=== PATIENT | female | born 1965 | race Caucasian/White ===

== ENCOUNTER 2022-10-05 01:42 | Day surgery (SDC) | payer OTHER, SELFPAY ==
[2022-09-26 10:03] VITALS: BMI 31.6
--- NOTE | 2022-09-26 10:04 | SUR.PREOP ---
Report to the Outpatient Waiting Room, entrance under the green pavilion located off [facility], at time _0600 on date _10/05/22 . Planned Procedure Time: 07 . Time changes happen often and if your time is changed the preop area will call you the afternoon before. - You and your visitor will be asked to self-screen and do not enter if you have any COVID symptoms. - Only one visitor is requested with a max of two and NO children visitors are allowed at this time. - The patient visitor may be requested to leave or wait in car when not with patient due to distancing restrictions. - A mask is optional within the hospital. Patients may have clear liquids (water, carbonated beverages, clear teas, apple juice) until 3 hours prior to surgery with a maximum of 20 ounces. - No food from midnight until time of surgery - Infants may have breast milk until 4 hours before surgery, infant formula 6 hours prior to surgery. - Children will be allowed to drink immediately following surgery. If applicable, please bring a bottle or sippy cup to assist with drinking. Juice, water, soda, and popsicles are readily available. For infants on formula, please bring formula the day of surgery. Pacifiers are allowed. Take the following medications with a SIP of water the morning of surgery: ____n/a Medications to discontinue per physician __vitamin supplements Date to take last dose___10/02/22 Please no make-up, nail iranian, hairspray, perfume, deodorant, or body powder the day of surgery. No jewelry (including any body piercings) or valuables the day of surgery, leave them at home. Please take a shower or bath the night before, or the morning of, surgery with an antibacterial soap. Wear comfortable, loose fitting clothing. Children are encouraged to wear pajamas. - Jewelry must be removed prior to entering the operating room. Rings and piercings that are not removed may be cut off. - The hospital will not accept responsibility for valuables. - Please leave all valuables, including medications, at home the day of surgery. If you are going home after surgery, a licensed meals on wheels driver must drive you home. - NO public transportation without another adult if you receive anesthesia. - We recommend that an adult stay with you for 24 hours following discharge. - We also recommend that you do not drive, make important decision, drink alcoholic beverages, or take any drugs that were not prescribed by your health care provider for at least 24 hours after your discharge time. For Pediatric surgeries, we recommend two adults accompany the child home. Follow any additional instructions given to you from your surgeon. If you or anyone in your household have experienced Covid symptoms in the past week, please notify your surgeon or the nurse liaison at the phone number below for possible testing. Telephone instructions given to anum sanabria and asked if any additional questions and then verbalized understanding. Patient advised to call surgeon office or pre surgery nurse liaison [phone] if any additional questions.
--- NOTE | 2022-10-05 06:44 | P.PNAN_ITS ---
Anes - Initial Pre Proc Eval Procedure: Operation Date: 10/05/22 07:30 Proposed Procedures p Hysteroscopy Dilation and Curettage with Aveta, Possible Polypectomy - Shad Turcios MD Date/Time: 10/05/22 06:44 Surgeon: Shad Turcios MD Pre Op Diagnosis: Endometrial polyp Patient Data Age: 57 Gender: F Height: 1.55 m Weight: 75.9 kg Allergies Allergy/AdvReac Type Severity Reaction Status Date / Time No Known Allergies Allergy Mild Verified 09/26/22 09:44 Home Medications Medication Instructions Recorded Confirmed Type calcium carbonate 600 mg-vitamin 1 tablet PO DAILY 04/20/20 09/26/22 History D3 20 mcg (800 unit) chewable tablet (Caltrate 600 plus D) cholecalciferol (vitamin D3) 25 25 mcg PO DAILY 04/20/20 09/26/22 History mcg (1,000 unit) capsule potassium citrate 10 mEq (1,080 10 meq PO DAILY 04/20/20 09/26/22 History mg) tablet,extended release simvastatin 5 mg tablet 5 mg PO DAILY 04/20/20 09/26/22 History valsartan 160 1 tablet PO DAILY 04/20/20 09/26/22 History mg-hydrochlorothiazide 12.5 mg tablet aspirin 81 mg chewable tablet 81 mg PO DAILY 05/09/22 09/26/22 History Patient hx anesthesia problems: none Family hx anesthesia problems: none Results Review: All pre-operative results and documents have been reviewed as part of the pre- operative evaluation. [facility] Past Medical History Medical History High cholesterol Hypertension Vaginal delivery Surgical History Surgical History History of knee surgery Left knee 03/08/2021 S/P hip replacement Family History Family History Father Hypertension Grandparent Cerebrovascular accident Other Family history of malignant neoplasm of male breast Social History Social History Smoking status: Never smoker Second hand tobacco smoke exposure: No Alcohol intake: current Living arrangements: with family Spiritual care concerns: No Anes - Eval Final PreProcedure Day of Procedure 10/05/22 06:44 Patient weight: overweight Heart: regular rate and rhythm Lungs: clear to auscultation Airway: Mallampati scale class II Neurological: alert and oriented Last oral intake: >/= 8 hours ASA classification: II Emergent: no Anesthetic plan: proceed Anesthesia type and monitoring: general GIVS and standard monitoring Results Review: All pre-operative results and documents have been reviewed as part of the pre- operative evaluation. Informed Consent: The patient's anesthetic plan and its attendant risks and benefits were discussed with the patient/family/POA. Questions were solicited and answers provided to the satisfaction of the patient/family/POA.
[2022-10-05] MEDS: ACETAMINOPHEN 500 MG TABLET 1000 MG PO (07:00)
[2022-10-05] MEDS: LACTATED RINGERS 1,000 ML 30 ML IV CONT (07:00)
--- NOTE | 2022-10-05 07:14 | PM.IMHP ---
H&P: [facility] History of Present Illness Date/Time: 10/05/22 07:14 Chief Complaint: Endometrial polyp Narrative: She is here for scheduled dilation and currettage and hysteroscopy and removal of endometrial polyp if present. She had an endometrial biopsy performed due to irregular periods and late onset menopausae and biopsy showed endometrial polyp. She was recommend for D and C hysteroscopy and removal of polyp if present. Review of Systems Review of Systems: All systems reviewed & are unremarkable except as noted in HPI and below Constitutional: Constitutional: Reports no additional constitutional complaints Eyes: Eyes: Reports no additional eye complaints Cardiovascular: Cardiovascular: Reports no additional cardiovascular complaints Respiratory: Respiratory: Reports no additional respiratory complaints Gastrointestinal: Gastrointestinal: Reports no additional gastrointestinal complaints Genitourinary: Genitourinary: Reports no additional female genitourinary complaints and Reports as per HPI Integumentary/Breasts: Skin/Breast: Reports system reviewed and no additional complaints, except as docu Neurologic: Reports system reviewed and no additional complaints, except as documented Psychiatric: Psychiatric: Reports no additional psychiatric complaints Hematologic/Lymphatic: Hematologic/Lymphatic: Reports no additional hematologic/lymphatic complaints [facility] Past Medical History Medical History High cholesterol Hypertension Vaginal delivery Surgical History Surgical History History of knee surgery Left knee 03/08/2021 S/P hip replacement Family History Family History Father Hypertension Grandparent Cerebrovascular accident Other Family history of malignant neoplasm of male breast Social History Social History Smoking status: Never smoker Second hand tobacco smoke exposure: No Alcohol intake: current Living arrangements: with family Spiritual care concerns: No Meds Home Medications and Allergies Home Medications Medication Instructions Recorded Confirmed Type calcium carbonate 600 mg-vitamin 1 tablet PO DAILY 04/20/20 09/26/22 History D3 20 mcg (800 unit) chewable tablet (Caltrate 600 plus D) cholecalciferol (vitamin D3) 25 25 mcg PO DAILY 04/20/20 09/26/22 History mcg (1,000 unit) capsule potassium citrate 10 mEq (1,080 10 meq PO DAILY 04/20/20 09/26/22 History mg) tablet,extended release simvastatin 5 mg tablet 5 mg PO DAILY 04/20/20 09/26/22 History valsartan 160 1 tablet PO DAILY 04/20/20 09/26/22 History mg-hydrochlorothiazide 12.5 mg tablet aspirin 81 mg chewable tablet 81 mg PO DAILY 05/09/22 09/26/22 History Allergies Allergy/AdvReac Type Severity Reaction Status Date / Time No Known Allergies Allergy Mild Verified 09/26/22 09:44 Exam Const: General: comfortable and no acute distress Orientation/consciousness: oriented to person, oriented to place and oriented to time Eyes: General: appearance normal, both eyes and all related structures Neck: Neck: normal visual inspection Resp: Effort & Inspection: normal respiratory effort Auscultation: clear to auscultation bilaterally Cardio: Rate: regular rate Rhythm: regular rhythm GI: Inspection: normal to inspection GI Palp: No abdominal tenderness and Yes No hepatosplenomegaly present : External Female Exam: normal external appearance Speculum Exam - Vagina: normal appearance of the vagina Speculum Exam - Cervix: normal appearance of the cervix Bimanual exam- vagina & uterus: normal bimanual exam, uterine mobility normal, uterine shape normal and non-tender Bimanual Exam- Adnexa, other: no masses and No adnexal tenderness Skin: General skin exam: normal color
--- NOTE | 2022-10-05 07:17 | WPDHPUPDATE1 ---
History and Physical Update Update Date/Time: 10/05/22 07:17 History and Physical has been reviewed, including an updated exam of the patient. There are NO changes in the patient's condition. Risks, benefits, and alternatives have been discussed and questions answered. Patient agrees to proceed with procedure.
[2022-10-05 07:19] VITALS: BP 141/71; PULSE 63; RESP 14; TEMP 36.6; O2SAT 100
[2022-10-05] MEDS: ceFAZolin 2 GM/D5W 50 ML 2 GM/50 ML BAG IVPB (07:25)
[2022-10-05] MEDS: KETOROLAC 30 MG/ML VIAL (*BKC) IV PUSH (07:40)
[2022-10-05] MEDS: LIDOCAINE 1% BUFFERED WITH 8.4% SODIUM BICARB 1 ML SYRINGE 10 ML INFILTRATE (07:43)
[2022-10-05 08:05] VITALS: BP 116/74; PULSE 80; RESP 12; O2SAT 98
--- NOTE | 2022-10-05 08:13 | PM.OP ---
Procedure Note - Brief Procedure Note - Brief Date of procedure: 10/05/22 Pre-op diagnosis: Endometrial polyp same Post-op diagnosis: Same Procedure performed: Hysteroscopy dilation and currettage. Excision of endometrial polyp with Aveta instrument. Anesthesia: MAC and local Surgeon: Shad Turcios MD Estimated blood loss (mL): 5 Drains: No Packing: No Pathology: Yes (endometrial polyp currettings and endometrial curret) Complications: No immediate complications Condition: Stable Disposition: Same day Findings: uterus sound to 7 cm, int os stenotic, dilated with hydrodissection, endometrial polyp at mid endometrial cavity, removed completely. The rest of the cavity atrophic.
[2022-10-05 08:35] VITALS: BP 108/61; PULSE 54; RESP 12
--- NOTE | 2022-10-05 09:15 | W.PM.PROC2 ---
Procedure Note - Detailed Date of Procedure 10/05/22 Pre-op Diagnosis Endometrial polyp Post-op Diagnosis Same Procedure Performed Hysteroscopy with dilation and currettage and excision of endometrial polyp with Aveta instrument. Surgeon Shad Turcios MD Anesthesia MAC and Local Indications Endometrial polyp on office endometrial biopsy. Findings endometrial polyp approximately 1.5 cm anterior mid uterine cavity Description of Procedure After informed consent was obtained patient was taken to operating room.She had IV sedation initiated. In exam under anesthesia was performed exam was normal. Attention was turned to the vagina speculum was inserted single-tooth tenaculum placed on the anterior cervix. 10 cc of 1% lidocaine was injected at the cervical vaginal interface that 2 5 and 8 and 10:00 position on the cervix. The cervix os was stenotic at the upper os. The a Madeline a hysteroscope was used to perform hydro dilation of the cervix which did dilate well and the cavity was entered. There was the finding of the endometrial polyp. The cutting instrument was then inserted into the hysteroscope and the polyp was removed total. No other abnormalities were noted in the uterine cavity the rest of the cavity appeared atrophic. The uterus was sounded to 7 cm. A sharp curettage was performed with minimal tissue. The tenaculum was removed hemostasis was noted the speculum was removed the patient tolerated procedure well sponge count correct. Estimated Blood Loss -5.0 Drains No Packing No Pathology Yes ( Endometrial polyp curettings with a sharp endometrial curettings.) Complications No immediate complications Condition Stable Disposition Same day [facility] Billing Surgery - Charge Forward: Surgery Billing
== END 2022-10-05 08:55 | disposition home or self-care (01) ==
PROVIDERS: Visit Provider Obstetrics & Gynecology
PROC: 0U5B8ZZ Destruction of Endometrium, Via Natural or Artificial Opening Endoscopic (ICD-10-PCS; CPT 58563; principal; 2022-10-05 07:30)
DX: N84.0 Polyp of corpus uteri (principal); I10 Essential (primary) hypertension; E78.00 Pure hypercholesterolemia, unspecified; Z79.82 Long term (current) use of aspirin
CPT/HCPCS: 58558; 88305; A9270; J0690; J1885; J2250; J2405; J2704; J3010; J7030; J7120